=== PATIENT | female | born 1990 | race Caucasian/White ===

== ENCOUNTER → 2019-08-06 12:28 | Outpatient (CLI) | payer OTHER, MEDICAID, SELFPAY ==
[2019-08-06 13:20] LABS: Influenza A - CEPHEID Flu A NEGATIVE (NEGATIVE); Influenza B - CEPHEID Flu B NEGATIVE (NEGATIVE)
== END ==
PROVIDERS: PCP Family Medicine; Visit Provider Nurse Practitioner
DX: R68.89 Other general symptoms and signs (principal)
CPT/HCPCS: 87502

== ENCOUNTER 2023-10-24 20:24 | Emergency (ER) | payer OTHER, MEDICAID, SELFPAY ==
[2023-10-24 20:32] VITALS: BP 135/91; PULSE 88; RESP 18; TEMP 37.2; O2SAT 98; BMI 27.3
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
[2023-10-24] MEDS: LIDOCAINE VISCOUS 2% 15 ML SOLUTION PO ×2 (22:34→22:35)
[2023-10-24] MEDS: OXYCODONE IR 5 MG TABLET PO (22:34)
[2023-10-24] MEDS: OXYCODONE/APAP 5/325 PREPACK 1 BOTTLE MISC (23:25)
[2023-10-24 23:26] VITALS: BP 147/86; PULSE 83; RESP 16; O2SAT 99
== END 2023-10-24 23:27 | disposition home or self-care (01) ==
PROVIDERS: Emergency Provider Emergency Medicine; PCP Family Medicine
DX: T23.232A Burn of second degree of multiple left fingers (nail), not including thumb, initial encounter (principal); X16.XXXA Contact with hot heating appliances, radiators and pipes, initial encounter
CPT/HCPCS: 99283

== ENCOUNTER → 2025-04-02 07:14 | Outpatient (CLI) | payer OTHER, SELFPAY | LOC: LAB 07:14 | PROVIDERS: PCP Family Medicine; Visit Provider Chiropractor | DX: R30.0 Dysuria (principal) | CPT/HCPCS: 87077; 87086; 87186 ==